=== PATIENT | female | born 1950 | race African-American/Black ===

== ENCOUNTER 2017-09-04 15:39 | Emergency (ER) | payer BC, OTHER ==
[~2017-09-04] VITALS: Ht 167.6 cm; Wt 90.0 kg
[~2017-09-04 15:39] MED LIST: LISI-366 PO; MEDR4PAK3 PO; PROC60TA PO
[2017-09-04] MEDS: SODIUM CHLOR 0.9% 1000 ML INJ 1,000 ML IV ONE ×2 (16:00→17:00)
[2017-09-04 16:28] VITALS: BP 207/87; PULSE 73; RESP 16; TEMP 98.5; O2SAT 96
[2017-09-04] MEDS ORDERED: SODIUM CHLORIDE 0.9% FLUSH 10 ML FLUSH IVF PRN (16:45)
--- NOTE | 2017-09-04 17:02 | PD ---
HPI Chief Complaint: Syncope/Near-Syncope Time Seen by Provider: 16:08 Travel History International Travel<30 days: No Contact w/Intl Traveler<30days: No Traveled to known affect area: No History of Present Illness HPI The patient is a 66-year-old [place] female who presents to the emergency department after a possible syncopal episode. The patient was at work earlier today when she went "Oh Oh Oh" per her coworker and then leaned on the side of the wall. The coworker then helped the patient to the ground. There was no seizure-like activity, the patient is unsure if there was any loss of consciousness. Patient does have a history of 2 previous episodes of similar symptoms which was evaluated in the emergency department. She denied any head injury, denies any current headache, chest pain, shortness breath, palpitations, nausea, vomiting, abdominal pain, or focal deficits. She denies any history of known arrhythmias. She does have a history of hypertension for which she takes Procardia and lisinopril. The patient is currently asymptomatic. PFSH Past Medical History Autoimmune Disease: No Blood Disorders: No Depression: Yes Cancer: No Cardiovascular Problems: Yes Cerebrovascular Accident: No Diabetes: No Endocrine: No Headaches: Yes Hypertension: Yes Kidney Stones: No Respiratory: No Renal Failure: Yes (DX 08/05/04 WITH ACUTE RENAL FAILURE.) Schizophrenia: Yes Sickle Cell Disease: No Menopausal: Yes Past Surgical History Abdominal Surgery: No Cardiac Surgery: No Section: Yes (2) Ear Surgery: No Endocrine Surgery: No Eye Surgery: No Genitourinary Surgery: Yes Gynecologic Surgery: Yes (C SECTION x 2) Oral Surgery: No Thoracic Surgery: No Other Surgery: Yes Social History Alcohol Use: No Tobacco Use: No Substance Use: No Allergies-Medications (Allergen,Severity, Reaction): Coded Allergies: No Known Allergies (Verified , 08/08/15) Reported Meds & Prescriptions Reported Meds & Active Scripts Active Medrol Dosepak (Methylprednisolone) 4 Mg Moshe 4 Mg PO DIRECTED TAKE DIRECTED Lisinopril 40 mg (Lisinopril) 40 Mg Tab 40 Mg PO DAILY Procardia Xl (Nifedipine) 60 Mg Tab 60 Mg PO BID Review of Systems Except as stated in HPI: all other systems reviewed are Neg Eyes: No: Blurred Vision HENT: Positive: Headaches (history of intermittent headaches relieved with Tylenol), No: Lightheadedness Cardiovascular: Positive: Syncope, No: Chest Pain or Discomfort, Palpitations, Irregular Rhythm, Tachycardia, Diaphoresis Respiratory: No: Shortness of Breath Gastrointestinal: No: Nausea, Abdominal Pain Neurologic: Positive: Syncope, No: Dizziness, Focal Abnormalities, Seizures Physical Exam Narrative GENERAL: Awake, alert, pleasant 66-year-old female who appears her stated age and is in no acute respiratory distress. SKIN: Focused skin assessment warm/dry. HEAD: Atraumatic. Normocephalic. EYES: Pupils equal and round. No injection or drainage. ENT: No nasal bleeding or discharge. Mucous membranes pink and moist. NECK: Trachea midline. No JVD. CARDIOVASCULAR: Regular rate and rhythm. No murmur appreciated. Heart rate in the 70s. RESPIRATORY: No accessory muscle use. Clear to auscultation. Breath sounds equal bilaterally. GASTROINTESTINAL: Abdomen soft, non-tender, nondistended. No rebound tenderness. MUSCULOSKELETAL: No obvious deformities. No clubbing. No cyanosis. No edema. NEUROLOGICAL: Awake and alert. No obvious cranial nerve deficits. Motor grossly within normal limits. Normal speech. Nonfocal. PSYCHIATRIC: Appropriate mood and affect; insight and judgment normal. Data Data Last Documented VS Vital Signs Date Time Temp Pulse Resp B/P (MAP) Pulse Ox O2 Delivery O2 Flow Rate FiO2 09/04/17 16:28 98.5 73 16 207/87 (127) 96 Room Air Orders Orders Electrocardiogram (09/04/17 16:38) Complete Blood Count With Diff (09/04/17 16:38) Comprehensive Metabolic Panel (09/04/17 16:38) Magnesium (Mg) (09/04/17 16:38) Ecg Monitoring (09/04/17 16:38) Iv Access Insert/Monitor (09/04/17 16:38) Oximetry (09/04/17 16:38) Sodium Chloride 0.9% Flush (Ns Flush) (09/04/17 16:45) Sodium Chlor 0.9% 1000 Ml Inj (Ns 1000 M (09/04/17 16:38) Orthostatic Vital Signs (09/04/17 16:38) MDM Medical Decision Making Medical Screen Exam Complete: Yes Emergency Medical Condition: Yes Medical Record Reviewed: Yes Interpretation(s) EKG reveals normal sinus rhythm with a rate of 72. Nonspecific ST-T wave changes. Differential Diagnosis Differential diagnosis includes syncope, near-syncope, arrhythmia, electrolyte abnormality, vasogenic syncope, cardiogenic syncope, orthostatic hypotension, dehydration, seizure. Narrative Course IV was established, labs are drawn and sent, and the patient was placed on cardiac telemetry monitoring and continuous pulse oximetry monitoring. EKG was ordered and interpreted. Orthostatic vital signs were obtained. The patient was signed out to the oncoming physician, Dr. Doe, at 5 PM. Diagnosis Primary Impression: Near syncope Condition: Stable Kvng Poe MD Sep 04, 2017 17:02
[2017-09-04 17:18] LABS: AUTOMATED NEUTROPHIL # 5.7 TH/MM3 (1.8-7.7); BASOPHIL # 0.1 TH/MM3 (0-0.2); BASOPHIL % 0.8 % (0.0-2.0); EOSINOPHIL # 0.1 TH/MM3 (0-0.4); EOSINOPHIL % 1.4 % (0.0-4.0); HEMATOCRIT 38.5 % (35.0-46.0); HEMOGLOBIN 12.8 GM/DL (11.6-15.3); LYMPHOCYTE # 2.2 TH/MM3 (1.0-4.8); MEAN CELL VOLUME 87.9 FL (80.0-100.0); MEAN CORPUSCULAR HEMOGLOBIN 29.2 PG (27.0-34.0); MEAN CORPUSCULAR HGB CONC 33.2 % (32.0-36.0); MEAN PLATELET VOLUME 8.1 FL (7.0-11.0); MONO % 8.6 % (0.0-8.0); MONOCYTE # 0.8 TH/MM3 (0-0.9); NEUT % 64.2 % (16.0-70.0); PLATELET COUNT 337 TH/MM3 (150-450); RED BLOOD COUNT 4.38 MIL/MM3 (4.00-5.30); RED CELL DISTRIBUTION WIDTH 14.9 % (11.6-17.2); WHITE BLOOD COUNT 8.8 TH/MM3 (4.0-11.0)
[2017-09-04 17:40] LABS: ALT (GPT) 21 U/L (10-53)
[2017-09-04 17:42] LABS: ALKALINE PHOSPHATASE 154 U/L (45-117); TOTAL BILIRUBIN ADULT 0.3 MG/DL (0.2-1.0); TOTAL PROTEIN 8.5 GM/DL (6.4-8.2)
[2017-09-04 17:56] LABS: ALBUMIN 3.6 GM/DL (3.4-5.0); AST (GOT) 26 U/L (15-37); BLOOD UREA NITROGEN 12 MG/DL (7-18); CALCIUM 9.9 MG/DL (8.5-10.1); CHLORIDE 105 MEQ/L (98-107); GLOMERULAR FILTRATION RATE 101 ML/MIN (>89); GLUCOSE,RANDOM 108 MG/DL (74-106); MAGNESIUM 1.8 MG/DL (1.5-2.5); SODIUM (NA) 140 MEQ/L (136-145)
--- NOTE | 2017-09-04 18:19 | PD ---
Data Data Last Documented VS Vital Signs Date Time Temp Pulse Resp B/P (MAP) Pulse Ox O2 Delivery O2 Flow Rate FiO2 09/04/17 16:28 98.5 73 16 207/87 (127) 96 Room Air Orders Orders Electrocardiogram (09/04/17 16:38) Complete Blood Count With Diff (09/04/17 16:38) Comprehensive Metabolic Panel (09/04/17 16:38) Magnesium (Mg) (09/04/17 16:38) Ecg Monitoring (09/04/17 16:38) Iv Access Insert/Monitor (09/04/17 16:38) Oximetry (09/04/17 16:38) Sodium Chloride 0.9% Flush (Ns Flush) (09/04/17 16:45) Sodium Chlor 0.9% 1000 Ml Inj (Ns 1000 M (09/04/17 16:38) Orthostatic Vital Signs (09/04/17 16:38) Labs Laboratory Tests Test 09/04/17 17:00 White Blood Count 8.8 TH/MM3 Red Blood Count 4.38 MIL/MM3 Hemoglobin 12.8 GM/DL Hematocrit 38.5 % Mean Corpuscular Volume 87.9 FL Mean Corpuscular Hemoglobin 29.2 PG Mean Corpuscular Hemoglobin Concent 33.2 % Red Cell Distribution Width 14.9 % Platelet Count 337 TH/MM3 Mean Platelet Volume 8.1 FL Neutrophils (%) (Auto) 64.2 % Lymphocytes (%) (Auto) 25.0 % Monocytes (%) (Auto) 8.6 % Eosinophils (%) (Auto) 1.4 % Basophils (%) (Auto) 0.8 % Neutrophils # (Auto) 5.7 TH/MM3 Lymphocytes # (Auto) 2.2 TH/MM3 Monocytes # (Auto) 0.8 TH/MM3 Eosinophils # (Auto) 0.1 TH/MM3 Basophils # (Auto) 0.1 TH/MM3 CBC Comment DIFF FINAL Differential Comment Blood Urea Nitrogen 12 MG/DL Creatinine 0.70 MG/DL Random Glucose 108 MG/DL Total Protein 8.5 GM/DL Albumin 3.6 GM/DL Calcium Level 9.9 MG/DL Magnesium Level 1.8 MG/DL Alkaline Phosphatase 154 U/L Aspartate Amino Transf (AST/SGOT) 26 U/L Alanine Aminotransferase (ALT/SGPT) 21 U/L Total Bilirubin 0.3 MG/DL Sodium Level 140 MEQ/L Potassium Level 4.4 MEQ/L Chloride Level 105 MEQ/L Carbon Dioxide Level 31.0 MEQ/L Anion Gap 4 MEQ/L Estimat Glomerular Filtration Rate 101 ML/MIN [facility] Supervised Visit with NIKKY: No Narrative Course The patient was initially evaluated by the previous provider and sent out to me at the beginning of my shift pending labs and disposition. See his note for further details. Briefly this is a 66-year-old female who had what appeared to be a near- syncopal episode while at work today. She has had syncopal episodes in the past and has been worked up for these in the past. On arrival to the emergency department the patient reports she feels well and wants to go home. She did not sustain any injuries. On my exam she is awake and alert and is in no apparent distress. She is eager to go home. EKG shows normal sinus rhythm without any acute abnormalities. CBC is unremarkable. CMP is unremarkable. Vital signs show slight hypertension with blood pressure 207/87. The patient denies chest pain. No paresthesias or motor deficits. She is stable for discharge home with outpatient follow-up with a primary care physician this week. She was advised on when to return to the emergency department. She verbalizes understanding and agreement with plan. Diagnosis Primary Impression: Near syncope Referrals: Primary Care Physician 3 days Additional Instruction: Follow-up with a primary care physician this week. Return to the emergency department for worsening symptoms or any other concerns. Disposition: 01 DISCHARGE HOME Condition: Stable Oniel Doe MD Sep 04, 2017 18:19
--- NOTE | 2017-09-05 20:24 | EKG ---
Date Performed: 09/04/2017 Time Performed: 16:48:59 PTAGE: 66 years EKG: Sinus rhythm NONSPECIFIC ST & T-WAVE ABNORMALITY BORDERLINE ECG Since the prior tracing, there has been no signif icant change PREVIOUS TRACING : 08/08/2007 10.54 DOCTOR: Rober Jones Interpretating Date/Time 09/05/2017 20:20:08
== END 2017-09-04 19:01 | disposition home or self-care (01) ==
LOC: NEPD 15:39
DX: R55 Syncope and collapse (principal); R94.31 Abnormal electrocardiogram [ECG] [EKG]; I10 Essential (primary) hypertension; F20.9 Schizophrenia, unspecified; F32.9 Major depressive disorder, single episode, unspecified; Z79.899 Other long term (current) drug therapy
CPT/HCPCS: 80053; 83735; 85025; 93005; 96360; 99284; J7030